=== PATIENT | male | born 1970 | race Caucasian/White ===

== ENCOUNTER 2017-11-25 10:07 | Emergency (ER) | payer OTHER ==
[~2017-11-25] VITALS: Ht 198.1 cm; Wt 172.4 kg
[~2017-11-25 10:07] MED LIST: ASPIRIN EC81 MG PO; FISH OIL 1,0001 EAC6 PO; FLAXSEED OIL1000 M1 PO; FUROSEMIDE20 MG PO; GABAPENTIN300 MG PO; HUMULIN N100 UNIT/1 SUB-Q; LEVOTHYROXINE200 MCG PO; LOSARTAN POTAS100 MG PO; METFORMIN HCL1000 MG PO; NAPROXEN500 MG PO; NORCO 10-325 T1 EACH PO; NOVOLOG FL100 UNIT/1 SUB-Q; OMEPRAZOLE20 MG PO; PIOGLITAZONE HC30 MG PO; POTASSIUM CHLO10 MEQ PO; PRAVASTATIN SOD20 MG PO; SILDENAFIL20 MG PO; SULFASALAZINE500 MG PO
== END 2017-11-25 12:32 | disposition home or self-care (01) ==
LOC: ED 10:07
DX: S63.501A Unspecified sprain of right wrist, initial encounter (principal); S43.401A Unspecified sprain of right shoulder joint, initial encounter; X58.XXXA Exposure to other specified factors, initial encounter; I10 Essential (primary) hypertension; E03.9 Hypothyroidism, unspecified; E11.40 Type 2 diabetes mellitus with diabetic neuropathy, unspecified; K21.9 Gastro-esophageal reflux disease without esophagitis; Z88.8 Allergy status to other drugs, medicaments and biological substances; Z79.899 Other long term (current) drug therapy; Z79.82 Long term (current) use of aspirin
CPT/HCPCS: 73030; 73110; 99283